=== PATIENT | male | born 1985 | race Caucasian/White ===

== ENCOUNTER 2017-11-06 10:29 | Inpatient (IN) | payer MEDICAID ==
--- NOTE | 2017-11-06 12:15 | EDPHY ---
H & P Stated Complaint: leg pain - Personal History Current Tetanus/Diphtheria Vaccine: Yes Tetanus Vaccine Date: <10 YRS - Medical/Surgical History Hx Asthma: Yes Hx Chronic Respiratory Disease: No Hx Diabetes: No Hx Cardiac Disease: No Hx Renal Disease: No Hx Cirrhosis: No Hx Alcoholism: No Hx HIV/AIDS: No Hx Splenectomy or Spleen Trauma: No Other PMH: medical- "asthma attacks like panic attacks". surgical- tonsilectomy , hernia repair, "anti-social behavior", - Social History Smoking Status: Heavy smoker Time Seen by Provider: 11/06/17 11:36 HPI/ROS: CHIEF COMPLAINT: "My legs are weak and I can't walk" HISTORY OF PRESENT ILLNESS: 32-year-old male with history of IV drug use, homelessness, took the bus to the ER stating for the past 2 days he has been experiencing progressive bilateral lower extremity weakness, left greater than right. Has not progressed proximally.. No trauma. No fall. No back pain. No fever or chills. No flu symptoms. No incontinence or retention. No discoloration. No urinary abnormality. No abdominal pain. No nausea or vomiting. No headache. No nuchal rigidity. No hallucination. PRIMARY CARE PROVIDER: None REVIEW OF SYSTEMS: A ten point review of systems was performed and is negative with the exception of the items mentioned in the HPI PAST MEDICAL & SURGICAL HISTORY: Asthma. Depression. Prior history chronic intermittent back pain but has been pain-free for several years. SOCIAL HISTORY: IV drug use history, sober for several months. Positive tobacco abuse. Newly homeless PHYSICAL EXAM (Prior to examination, patient consented to physical exam, hands were washed and my usual and customary physical exam procedures followed) 1) GENERAL: [Well-developed, well-nourished, alert and oriented. Poorly kept 2) HEAD: Normocephalic, atraumatic 3) HEENT: Pupils equal, round, reactive to light bilaterally. Sclera anicteric. Nasopharynx, oropharynx, clear, no lesions. 4) NECK: Full range of motion, no meningeal signs. 5) LUNGS: Clear auscultation bilaterally, no wheezes, no rhonchi, no retractions. 6) HEART: Regular rate and rhythm, no murmur, no heave, no gallop. 7) ABDOMEN: No guarding, no rebound, no focal tenderness, negative McBurney's, negative Au's, negative Rovsing's, negative peritoneal sign, 8) MUSCULOSKELETAL: Moving all extremities, no focal areas of tenderness, no obvious trauma. No peripheral edema or discoloration. 9) BACK: No CVA tenderness, no midline vertebral tenderness, no fluctuance, no step-off, no obvious trauma, no visual or palpable abnormality. 10) SKIN: No rash, no petechiae. 11) Psychiatric: Patient is oriented X 3, there is no agitation. 12) NEURO: Awake, alert, and oriented to person, place and time. Answers questions appropriately. He is unable to actively flex at the hip on the left thigh. He is unable to hold passive flexion at same location on the left side. Heel to alfaro dysfunction is noted, he has to lift his leg in order to move it against his alfaro. He is unable to Dorsiflexion and plantar flexion are present with no deficits. Antalgic, wide gait, hesitant to flex at the waist. Cranial nerves 2 through to 12 intact. DIFFERENTIAL DIAGNOSIS: In no particular order including but not limited to spinal infectious etiology, lumbar nerve compression, Guillain-T[place]ale[place], myositis (Cee,Leroy Katelyn) Constitutional: Initial Vital Signs Temperature (C) 36.3 C 11/06/17 10:30 Heart Rate 98 11/06/17 10:30 Respiratory Rate 18 11/06/17 10:30 Blood Pressure 134/103 H 11/06/17 10:30 O2 Sat (%) 93 11/06/17 10:30 O2 Delivery Mode Room Air Allergies/Adverse Reactions: SPIDER BITES Allergy (Intermediate, Uncoded 11/06/17 10:30) SITE EDEMA Home Medications: Medication Instructions Recorded Benztropine Mesylate [Cogentin 1.5 mg PO BID 11/06/17 (RX)] Haloperidol [Haldol 1 MG (*)] 1 mg PO DAILY 11/06/17 Haloperidol [Haldol 1 MG (*)] 3 mg PO HS 11/06/17 Lurasidone HCl [Latuda] 80 mg PO HS 11/06/17 hydrOXYzine HCL [hydrOXYzine HCL 50 mg PO BID 11/06/17 (RX)] Medical Decision Making - Diagnostics Imaging Results: Imaging Impressions Lumbar Spine MRI 11/06/17 12:19 Impression: Mild degenerative change as above with no acute findings. Findings discussed with Katelyn Mike on 11/06/2017 at 1357 hours. ED Course/Re-evaluation: This pt was seen and examined by me. He presents with BLE weakness, LBP and leukocytosis. Exam reveals LLE weakness, including hip flexion. MRI of the lumbar spine unremarkable. I agree with Katelyn Mike's assessment and plan. Plan for neurosurgery consultation and admission to the hospitalist service. (Sania Alegria) Noon.: Discussed the case with secondary supervising physician Dr. Sania Alegria in the ER. The patient has noted lower extremity weakness including hip flexion. He has a history of IV drug use. He has no complaints of back pain. Will obtain MRI of the lumbar spine, diagnostic studies and re-evaluate. 2:10 p.m.: I re-evaluated the patient. He remains with a noted L1/2 deficit. Will plan on admission. 2:17 p.m.: Consultation with Dr. Valiente Neurosurgery who will consult. 2:30 p.m.: Consultation with Dr. Jadyn Pool hospitalist will admit. Awaiting neurology call back 3:16 p.m.: Consultation with Dr. Lee Castillo of Neurology who agrees to consult. 3:23 p.m. patient is noted to have elevated CK. Hospitalist physician has been made aware of this (Leroy Mike) - Data Points Laboratory Results: Laboratory Results 11/06/17 12:15 11/06/17 12:15 11/06/17 11/06/17 11/06/17 14:22 12:15 12:15 WBC RBC Hgb Hct MCV MCH MCHC RDW Plt Count MPV Neut % (Auto) Lymph % (Auto) Lea % (Auto) Eos % (Auto) Baso % (Auto) Nucleat RBC Rel Count Absolute Neuts (auto) Absolute Lymphs (auto) Absolute Monos (auto) Absolute Eos (auto) Absolute Basos (auto) Absolute Nucleated RBC Immature Gran % Immature Gran # Platelet Estimate VBG Lactic Acid 1.0 mmol/L mmol/L (0.7-2.1) Sodium 137 mEq/L mEq/L (135-145) Potassium 3.9 mEq/L mEq/L (3.5-5.2) Chloride 98 mEq/L mEq/L (97-110) Carbon Dioxide 17 mEq/l L mEq/l (22-31) Anion Gap 22 mEq/L H mEq/L (8-16) BUN 18 mg/dL mg/dL (7-23) Creatinine 0.9 mg/dL mg/dL (0.7-1.3) Estimated GFR > 60 Glucose 96 mg/dL mg/dL (70-100) Calcium 9.7 mg/dL mg/dL (8.5-10.4) Creatine Kinase 7155 IU/L H IU/L (0-224) CK-MB (CK-2) Fraction 80.00 ng/mL H ng/mL (0.00-4.55) CK-MB (CK-2) % 1.1 % % (0.0-4.0) Creatine Kinase Interp NEGATIVE (NEGATIVE) 11/06/17 12:15 WBC 19.65 10^3/uL H 10^3/uL (3.80-9.50) RBC 5.61 10^6/uL 10^6/uL (4.40-6.38) Hgb 16.2 g/dL g/dL (13.7-17.5) Hct 47.4 % % (40.0-51.0) MCV 84.5 fL fL (81.5-99.8) MCH 28.9 pg pg (27.9-34.1) MCHC 34.2 g/dL g/dL (32.4-36.7) RDW 12.7 % % (11.5-15.2) Plt Count 269 10^3/uL 10^3/uL (150-400) MPV 10.2 fL fL (8.7-11.7) Neut % (Auto) Pending Lymph % (Auto) Pending Lea % (Auto) Pending Eos % (Auto) Pending Baso % (Auto) Pending Nucleat RBC Rel Count Pending Absolute Neuts (auto) Pending Absolute Lymphs (auto) Pending Absolute Monos (auto) Pending Absolute Eos (auto) Pending Absolute Basos (auto) Pending Absolute Nucleated RBC Pending Immature Gran % Pending Immature Gran # Pending Platelet Estimate Pending VBG Lactic Acid Sodium Potassium Chloride Carbon Dioxide Anion Gap BUN Creatinine Estimated GFR Glucose Calcium Creatine Kinase CK-MB (CK-2) Fraction CK-MB (CK-2) % Creatine Kinase Interp Medications Given: Nicotine Polacrilex (Nicorette) 2 mg B PRN PRN PRN Reason: Nicotine Withdrawal Stop: 05/05/18 13:35 Last Admin: 11/06/17 13:47 Dose: 2 mg Departure - Departure Disposition: [facility] Inpatient Acute Clinical Impression: History of IV drug use, Homeless, Elevated CK Lower extremity weakness Qualifiers: Laterality: bilateral Qualified Code(s): R29.898 - Other symptoms and signs involving the musculoskeletal system Condition: Fair
[2017-11-06 12:28] LABS: PLATELET COUNT 269 10^3/uL (150-400)
[2017-11-06] MEDS: NICOTINE POLACRILEX 2 MG GUM B PRN ×3 (13:47→21:10)
--- NOTE | 2017-11-06 15:14 | ASMTCMCOM ---
CM Note CM Note Notes: Met with patient in the ER prior to admission. patient is newly homeless and states that he has relocated from [place] to [place]. he tells me that he has been seeing Dr. Chung at [facility] for years. I have left a message with Dr. Chung to inform of patient's admission. I provided patient with homeless resources including the [facility] program. Patient appreciative and will continue to follow up with Dr. Chung upon discharge Date Signed: 11/06/2017 03:13 PM Electronically Signed By:Courtney Rhodes RN
[2017-11-06 15:18] LABS: CREATINE KINASE 7155 IU/L (0-224)
[2017-11-06] MEDS ORDERED: HYDROmorphone HCL/NS 0.5 MG/ML SYR IVP PRN (16:35)
[2017-11-06] MEDS ORDERED: PROMETHAZINE HCL 25 MG/ML INJ IVP PRN (16:38)
[2017-11-06] MEDS ORDERED: ONDANSETRON 4 MG/2 ML VIAL IVP PRN (16:38)
[2017-11-06] MEDS: ACETAMINOPHEN 325 MG TAB PO PRN (17:09)
[2017-11-06] MEDS: traMADol 50 MG TAB PO PRN (17:09)
[2017-11-06] MEDS: NS 1,000 ML IV SCH (17:11)
--- NOTE | 2017-11-06 17:14 | GHP ---
[f rep st] HISTORY AND PHYSICAL DATE OF ADMISSION: 11/06/2017 CHIEF COMPLAINT: Lower extremity weakness. HISTORY: The patient is a 32-year-old male who complains of 1 day of lower extremity weakness. He h as difficulty walking. He has some low or mid back pain. He denies any fever. He denies any urinar y incontinence or retention. Both his legs are weak, left greater than right, and they are stiff cau sing an unusual gait. He is homeless and denies any recent trauma. He describes the last couple of days mostly just sitting under various bridges trying to get out of rain and stay warm and dry. He h as a history of IV drug abuse but says he has not used for 3 years. PAST MEDICAL HISTORY: 1. IV drug abuse in the past. 2. Asthma versus panic disorder. 3. Antisocial personality disorder. PAST SURGICAL HISTORY: Hernia with mesh. MEDICATIONS: Please see computer record for a full detailed list. ALLERGIES: Spider bite. SOCIAL HISTORY: Smokes a half a pack per day. Also smokes marijuana. Quit IV drug abuse 3 years ag o. Minimal alcohol. He is homeless but grew up in [place] and went to [facility]. REVIEW OF SYSTEMS: Complete review of systems obtained. Review of systems negative for constitution al, HEENT, GI, pulmonary, cardiovascular, , hematology, skin, muscular, endocrine, psych. Pertinen t positives as noted in HPI. FAMILY HISTORY: Reviewed, noncontributory to presenting complaint. PHYSICAL EXAMINATION: GENERAL: Well-developed, well-nourished male, in no distress. VITAL SIGNS: Temp is 36.3, pulse 104, blood pressure 132/84, saturating 91% on room air. HEENT: Normal conjuncti vae. Pupils react to light. Normal ears, nose. Hearing intact. Normal teeth. Oropharynx moist. NECK: Trachea midline. No thyromegaly. CHEST: Normal inspiratory effort. Lungs clear to auscultat ion bilaterally. CARDIOVASCULAR: Regular rate and rhythm with no murmur. No lower extremity edema. ABDOMEN: Soft, nontender. No hepatosplenomegaly. SKIN: Warm, dry, intact without rash. MUSCULO SKELETAL: No cyanosis or clubbing. Strength is reduced in bilateral lower extremities. I did watch him ambulate. He was stiff, wide base gait. Getting his legs out of bed, he used his arms to lift the legs over the side of the bed. NEUROLOGIC: Cranial nerves intact. Normal sensation to light pey[place] ch. PSYCHIATRIC: Alert and oriented x3. Normal mood and affect. Normal judgment. Normal memory. LABORATORY DATA: White count 19.6, hematocrit 47.4, platelets 269. Sodium 137, potassium 3.9, chlor sridhar 98, bicarb 17, BUN 18, creatinine 0.9, glucose 96. Lactate is 1.0. CPK is 7155. MRIs of the thoracic and lumbar spine are unremarkable. This case was discussed with , emergency room PA. He has consulted both Neurosurgery and N eurology to see the patient in consultation. ASSESSMENT/PLAN: 1. Lower extremity weakness associated with low back pain. Initial concern for epidural abscess, gi yokasta his history of intravenous drug abuse and leukocytosis, but MRIs of the thoracic and lumbar spine are unremarkable. Await Neurology input. 2. Rhabdomyolysis. Will hydrate overnight with intravenous fluids and follow CPK. 3. History of intravenous drug abuse. Will check human immunodeficiency virus and hepatitis C. 4. Antisocial personality disorder. He has an extensive psychiatric medication list which will be c ontinued. CODE STATUS: Full. ADMISSION STATUS: Will admit to observation. Reevaluate tomorrow regarding ongoing need for hospita lization. DVT PROPHYLAXIS: He is moderate risk. Will place on subcu Lovenox. /[id number]/MODL
--- NOTE | 2017-11-06 17:29 | GCON ---
[f rep st] CONSULTATION EMERGENCY ROOM CONSULTATION DATE OF CONSULTATION: 11/06/2017 REASON FOR CONSULTATION: Proximal leg weakness. HISTORY OF PRESENT ILLNESS: The patient is a 32-year-old IV drug user, who suffers from homelessness , as well as apparently history of antisocial behavior and, over the last 2 days, has been suffering from progressive proximal bilateral lower extremity weakness and, today, he was unable to walk. The left side is worse than the right. He complains of diffuse swanson leg pain throughout both legs in no p articular dermatomal pattern, but his legs are hurting and painful. He has had no trauma. He denies back pain. He denies fevers or chills. Distal legs, he says, are doing fine. He denies any proble ms with his arms whatsoever. No weakness in the arms. No numbness or tingling. PAST MEDICAL HISTORY: Significant for asthma, intermittent back pain, but he has been pain free for several years. He has had a tonsillectomy, a hernia repair, and he says that he has some antisocial behavior. SOCIAL HISTORY: He is an IV drug user and has been sober for several months, but he does smoke [employer] He is homeless, but this is a new development for him. PHYSICAL EXAM: VITAL SIGNS: Blood pressure 132/84, his MAP was 100, heart rate was 104, respiratory rate 18, saturations were 91% on room air. NEURO: His eyes are open. He follows commands bilatera lly. He is in no acute distress, but he does have profound proximal leg weakness. He has good stren gth in the plantar flexors, extensor hallucis longus and tibialis anterior. His left quadriceps is 2 /5. His left iliopsoas is 1/5. The right quadriceps is 3/5. The right iliopsoas is also 3/5. His sensation is present in the legs, and he was evaluated for a thoracic sensory level repeatedly, and h e has an area of hypersensitivity in the mid thoracic spine, but there is no clear evidence of a thor acic sensory level on exam. DATA REVIEWED: MRI of the lumbar spine demonstrates no evidence of any critical nerve compression at any level in the lumbar spine. ASSESSMENT AND PLAN: The patient is a 32-year-old homeless gentleman, who has a history of IV drug a buse and is a heavy smoker, who has significant proximal leg weakness without evidence of neural comp ression on lumbar MRI. He did have an area of hypersensitivity in his thoracic spine but no evidence of a clear thoracic sensory level. He has no upper motor neuron signs in his arms. I did not see n ecessarily a reason to image the cervical spine, as he has normal strength in the upper extremities, but I thought a thoracic MRI might be useful in this case. The more common causes of proximal muscle weakness in the legs with pain in the legs would be an inflammatory condition of the muscles themsel ves, possibly metabolic or related to poor nutrition. Alcohol can be a cause of proximal muscle weak ness and myositis, but he apparently has refrained from this recently. I think an opinion with Neuro logy as well would be valid, and we will wait to see what the thoracic MRI demonstrates. There is no neurosurgical problem in this patient, but further workup is needed to understand the nature of his difficulty. /[id number]/MODL
[2017-11-06] MEDS ORDERED: MAGNESIUM HYDROXIDE 30 ML UDCUP PO PRN (17:45)
[2017-11-06] MEDS ORDERED: LACTULOSE 20 GM/30 ML UDCUP PO PRN (17:45)
[2017-11-06] MEDS ORDERED: BISACODYL 10 MG SUPP PR PRN (17:45)
[2017-11-06] MEDS ORDERED: POLYETHYLENE GLYCOL 3350 17 GM PKT PO PRN (17:45)
[2017-11-06] MEDS: BENZTROPINE MESYLATE 1 MG TAB PO SCH (19:53)
[2017-11-06] MEDS: hydrOXYzine HCL 25 MG TAB PO SCH (19:54)
[2017-11-06] MEDS: HALOPERIDOL 1 MG TAB PO SCH (19:55)
[2017-11-06] MEDS: LURASIDONE HCL 80 MG TAB PO SCH (19:55)
[2017-11-06] MEDS: oxyCODONE IR 5 MG TAB PO PRN (19:56)
[2017-11-06] MEDS: SENNOSIDES/DOCUSATE SODIUM TAB PO SCH (19:56)
[2017-11-07] MEDS: NS 1,000 ML IV SCH ×3 (01:08→14:42)
[2017-11-07] MEDS: traMADol 50 MG TAB PO PRN ×3 (04:38→15:46)
[2017-11-07 05:28] LABS: PLATELET COUNT 263 10^3/uL (150-400)
[2017-11-07 05:55] LABS: CREATINE KINASE 2846 IU/L (0-224)
[2017-11-07 06:45] LABS: HEPATITIS C ANTIBODY TOTAL NEGATIVE (NEGATIVE); HIV TYPE 1 AND 2 NEGATIVE (NEGATIVE)
[2017-11-07] MEDS: HALOPERIDOL 1 MG TAB PO SCH ×2 (08:41→20:19)
[2017-11-07] MEDS: BENZTROPINE MESYLATE 1 MG TAB PO SCH ×2 (08:41→20:19)
[2017-11-07] MEDS: SENNOSIDES/DOCUSATE SODIUM TAB PO SCH ×2 (08:42→20:20)
[2017-11-07] MEDS: hydrOXYzine HCL 25 MG TAB PO SCH ×2 (08:42→20:20)
[2017-11-07] MEDS: ENOXAPARIN 40 MG/0.4 ML SYR SC SCH (08:42)
[2017-11-07] MEDS: NICOTINE POLACRILEX 2 MG GUM B PRN ×2 (08:54→15:48)
[2017-11-07] MEDS: ACETAMINOPHEN 325 MG TAB PO PRN ×2 (08:54→15:45)
--- NOTE | 2017-11-07 09:51 | NEUROPROG ---
Assessment: [id number] - Neurology Consult: - CC: Dr. Jadyn Pool consulted neurology for lower extremity weakness. Results placed in EMR for her review. - HPI: Pt is homeless. He noted on 11/04/17 his left greater than right leg felt weak. He denied urinary incontinence but has some lower and mid back pain. He denied fever or recent IV drug abuse (last abused in 2014). Weakness was proximal legs and progressed to the point of preventing ambulation so he came to the [facility] ER on 11/06/17. He also complained of leg pain. Neurosurgery saw the patient and found no indications for surgery. CK was very high at 7,155 so it appears he has rhabdomyolysis to explain his symptoms. I initially saw the patient on . His CK was decreasing to the 1999s. He reported his legs felt less weak and painful today but were still a problem. His neurologic exam on 11/07/17 showed bilateral proximal leg weakness. - PMHx: IV drug abuse, asthma vs panic disorder, antisocial personality disorder, hernia - SHx: +tobacco, homeless FHx: NC - ROS: Pt denied acute fever, total vision loss, active severe chest pain, respiratory failure, total body severe rash, total bowel/bladder incontinence, psychosis, active seizures, or active bleeding - O: VS reviewed General: Alert Eyes: Fundoscopic exam not able to visualize optic disks CV: Heart RRR, no murmur, no carotid bruit Lungs: Clear to auscultation bilaterally, no rhonchi or rales Neuro: - Mental: . Oriented x person/place/date . concentration appears normal . speech fluency/comprehension normal . memory appears normal . fund of knowledge appear intact - Cranial Nerves: . II: PERRL, VFFTC . III/IV/: EOMI, no nystagmus, normal smooth pursuits, no Ptosis . V: facial sensation intact to LT . VII: face symmetric to eye closure and smile . VIII: hearing intact to conversation . IX/X: uvula raises symmetrically . XI: SCM 5/5 B/L strength . XII: tongue protrudes midline w/nl strength - Motor: . Tone: normal tone in all 4 extremity . Strength: no pronator drift, strength 5/5 in arms and distal legs but 4+ / 5 in b/l proximal legs - Reflexes: B/L bic/BR/patella 08/10 - Sensory: all 4 extremity intact to light touch - Coord: [id number] wnl, ROBBIN wnl - Gait: deferred - Labs: 11/06/17- CBC WBC 19.65H, Chem CO2 17L Anion gap 22H, CK 7155H 11/07/17- CBC WBC 13.99H, ESR 11, CMP AST 252H, ALT 86H, CK 2846, CRP 64.4H, TSH wnl, B12 604, Hep C ab neg, HIV 1 and 2 negative, - Rads: 11/06/17- T/L Spine MRI w/o con: mild lumbar degenerative changes w/o acute findings, normal thoracic spine (I personally visualized the images on 11/06/17) - Assessment: 1. Rhabdomyolysis causing bilateral proximal leg weakness/pain: Unclear cause but inflammatory myopathy, metabolic myopathy (alcohol or drug abuse can cause) , or infective myopathy are all possible. Agree with pending lab evaluation. Condition is improving with decreasing CK values and improving clinical symptoms. - Plan: - blood culture and Aldolase pending to look for any inflammatory or infectious myopathy - PT/OT consult to determine any rehab needs - Symptoms are improving - F/U in neurology clinic 1-4 weeks after discharge, we can consider an EMG/NCS at that time to further investigate the cause of his myopathy Objective: Vital Signs Temp Pulse Resp BP Pulse Ox 37.1 C 97 18 112/65 91 L 11/07/17 08:00 11/07/17 08:00 11/07/17 08:00 11/07/17 08:00 11/07/17 08:00 Laboratory Results 11/07/17 04:42 11/07/17 04:42 11/06/17 11/07/17 11/08/17 05:59 05:59 05:59 Intake Total 150 2273 Balance 150 2273 Allergies/Adverse Reactions: SPIDER BITES Allergy (Intermediate, Uncoded 11/06/17 10:30) SITE EDEMA
--- NOTE | 2017-11-07 10:01 | NEUSURGPN ---
Assessment/Plan: 32 y/o male who presented with pain in hsi legs and weaknss-this had now improved. Appreciate neurology consultation. There is no acute neurosurgical issues and patient is improving. Will s/o at this time Discussed with Dr. Davis Please notify NS with any change in neuro/motor exam Subjective: denies any neck or back pain. Leg strength improved, pain improved. Objective: NAD A&Ox3 MAEx4, 5/5 and equal in BUE and BLE. Sensation intact - Physician Discussed Patient with : Ryan Neurosurgery Physical Exam - Vitals, I&O, Labs I and O 11/06/17 11/07/17 11/08/17 05:59 05:59 05:59 Intake Total 150 2273 Balance 150 2273 Weight 104.326 kg Intake: Oral (ml) 150 500 IV Infused (ml) 1773 Ns 1,000 ml @ 150 mls/hr 1773 IV CONT MAREN Rx#: [id number] Other: Intake Quantity Yes Sufficient Number of Voids 1 Toilet 1 Vital Signs Temp Pulse Resp BP Pulse Ox 37.1 C 97 18 112/65 91 L 11/07/17 08:00 11/07/17 08:00 11/07/17 08:00 11/07/17 08:00 11/07/17 08:00 Laboratory Results 11/07/17 04:42 11/07/17 04:42 ICD10 Worksheet Patient Problems: Problems Problem Status Onset Elevated CK Acute Homeless Acute Lower extremity weakness Acute
--- NOTE | 2017-11-07 11:07 | ASMTCMCOM ---
CM Note CM Note Notes: Chart reviewed. Met with patient who is very sleepy but interacts appropriately. Being hydrated. Has information on group home and is current with Dr. Chung at [facility] [phone]. May need group home bed reserved upon discharge. CM to follow. Plan:Dc to street vs group home Date Signed: 11/07/2017 11:06 AM Electronically Signed By:Eloise Steiner RN
--- NOTE | 2017-11-07 14:37 | HOSPPROG ---
Hospitalist Progress Note Assessment/Plan: #Bilateral proximal leg weakness #Bilateral Leg Pain #Rhabdo #Homelessness #Tobacco Abuse disorder Plan: -Cont IVF -Cont PT -Per Neuro, etiology of leg weakness could be Rhabdo causing inflammatory myopathy -NS signed off -Nicotine replacement -Lovenox Change to inpatient Subjective: still weak but improving. working with PT. no surgical intervention needed Objective: Vital Signs Temp Pulse Resp BP Pulse Ox 36.9 C 90 15 112/71 95 11/07/17 11:18 11/07/17 11:18 11/07/17 11:18 11/07/17 11:18 11/07/17 11:18 Laboratory Results 11/07/17 04:42 11/07/17 04:42 11/06/17 11/07/17 11/08/17 05:59 05:59 05:59 Intake Total 150 2273 Balance 150 2273 - Physical Exam Constitutional: no apparent distress, appears nourished Eyes: PERRL, EOMI Ears, Nose, Mouth, Throat: moist mucous membranes, hearing normal, ears appear normal Cardiovascular: regular rate and rhythym, no murmur, rub, or gallop Respiratory: no respiratory distress, no rales or rhonchi Gastrointestinal: normoactive bowel sounds, soft, non-tender abdomen Skin: warm Musculoskeletal: generalized weakness Neurologic: AAOx3 Psychiatric: interacting appropriately, not anxious, not encephalopathic ICD10 Worksheet Patient Problems: Problems Problem Status Onset Elevated CK Acute Homeless Acute Lower extremity weakness Acute
--- NOTE | 2017-11-07 14:58 | PDMN ---
Medical Necessity Medical necessity: change to IP; los>2mn for bilateral LE weakness and pain, rhabdo possibly causing inflammatory myopathy; requires continued IVF, PT; comorbid asthma vs panic disorder, personality disorder, and hx IV drug use, homelessness; per order and progress note 11/07/17
[2017-11-07] MEDS: oxyCODONE IR 5 MG TAB PO PRN (20:18)
[2017-11-07] MEDS: LURASIDONE HCL 80 MG TAB PO SCH (20:20)
[2017-11-08] MEDS: NS 1,000 ML IV SCH ×2 (01:01→10:27)
[2017-11-08 04:45] LABS: PLATELET COUNT 220 10^3/uL (150-400)
[2017-11-08 05:23] LABS: CREATINE KINASE 916 IU/L (0-224)
[2017-11-08 08:04] VITALS: BP 137/91
[2017-11-08] MEDS: BENZTROPINE MESYLATE 1 MG TAB PO SCH (08:31)
[2017-11-08] MEDS: hydrOXYzine HCL 25 MG TAB PO SCH (08:31)
[2017-11-08] MEDS: NICOTINE POLACRILEX 2 MG GUM B PRN (08:32)
[2017-11-08] MEDS: ENOXAPARIN 40 MG/0.4 ML SYR SC SCH (08:32)
[2017-11-08] MEDS: HALOPERIDOL 1 MG TAB PO SCH (08:32)
[2017-11-08] MEDS: SENNOSIDES/DOCUSATE SODIUM TAB PO SCH (08:35)
--- NOTE | 2017-11-08 10:34 | HOSPPROG ---
Hospitalist Progress Note Assessment/Plan: #Bilateral proximal leg weakness/pain * presumed d/t rhabodo * improving * was needing walker today when walking down [address] - will keep another day or 2 for strengthening #Rhabdo * cause not completely clear * was cold and [place] [facility] [place] before the symptoms started * cpk close to normal * will dc fluid #Homelessness #Tobacco Abuse Subjective: getting stronger everyday but still fairly unsteady Objective: Vital Signs Temp Pulse Resp BP Pulse Ox 36.7 C 76 18 137/91 H 93 11/08/17 08:03 11/08/17 08:03 11/08/17 08:03 11/08/17 08:03 11/08/17 08:03 Laboratory Results 11/08/17 04:25 11/08/17 04:25 11/07/17 11/08/17 11/09/17 05:59 05:59 05:59 Intake Total 150 4373 Output Total 1 Balance 150 4372 - Physical Exam Constitutional: no apparent distress, appears nourished, not in pain Eyes: PERRL, anicteric sclera Cardiovascular: regular rate and rhythym Respiratory: no respiratory distress Skin: warm Neurologic: AAOx3 Psychiatric: interacting appropriately, not anxious, not encephalopathic, thought process linear ICD10 Worksheet Patient Problems: Problems Problem Status Onset Elevated CK Acute Homeless Acute Lower extremity weakness Acute
--- NOTE | 2017-11-08 13:25 | NEUROPROG ---
Assessment: [id number] - Neurology Consult: - CC: F/U for rhabdomyolysis causing b/l proximal leg weakness - Narrative Summary: Pt is homeless. He noted on 11/04/17 his left greater than right leg felt weak. He denied urinary incontinence but has some lower and mid back pain. He denied fever or recent IV drug abuse (last abused in 2014). Weakness was proximal legs and progressed to the point of preventing ambulation so he came to the [facility] ER on 11/06/17. He also complained of leg pain. Neurosurgery saw the patient and found no indications for surgery. CK was very high at 7,155 so it appears he has rhabdomyolysis to explain his symptoms. I initially saw the patient on . His CK was decreasing to the 1999s. He reported his legs felt less weak and painful today but were still a problem. His neurologic exam on 11/07/17 showed bilateral proximal leg weakness. He was improving. - HPI: F/U 11/08/17. Pt denied new complaints. His CK continues to downtrend to 916 and he is clinically improving. Blood cultures show no growth, aldolase still pending. - PMHx: IV drug abuse, asthma vs panic disorder, antisocial personality disorder, hernia - SHx: +tobacco, homeless FHx: NC - ROS: Pt denied acute fever, total vision loss, active severe chest pain, respiratory failure, total body severe rash, total bowel/bladder incontinence, psychosis, active seizures, or active bleeding - Labs: 11/06/17- CBC WBC 19.65H, Chem CO2 17L Anion gap 22H, CK 7155H 11/07/17- CBC WBC 13.99H, ESR 11, CMP AST 252H, ALT 86H, CK 2846, CRP 64.4H, TSH wnl, B12 604, Hep C ab neg, HIV 1 and 2 negative, 11/08/17- CBC unremarkable, CK 916H - Rads: 11/06/17- T/L Spine MRI w/o con: mild lumbar degenerative changes w/o acute findings, normal thoracic spine (I personally visualized the images on 11/06/17) - Assessment: 1. Rhabdomyolysis causing bilateral proximal leg weakness/pain: Unclear cause but inflammatory myopathy or metabolic myopathy (alcohol or drug abuse can cause ) are possible. Condition is improving with decreasing CK values and improving clinical symptoms. - Plan: - Aldolase pending to look for any inflammatory myopathy - PT/OT consult to determine any rehab needs - Symptoms are improving with IV fluid, no additional therapy needed at this time - F/U in neurology clinic 1-4 weeks after discharge, we can consider an EMG/NCS at that time to further investigate the cause of his myopathy - 35 min spent with patient, majority of time spent counseling on condition to include prognosis and therapeutic plan. Objective: Vital Signs Temp Pulse Resp BP Pulse Ox 36.7 C 76 18 137/91 H 93 11/08/17 08:03 11/08/17 08:03 11/08/17 08:03 11/08/17 08:03 11/08/17 08:03 Laboratory Results 11/08/17 04:25 11/08/17 04:25 11/07/17 11/08/17 11/09/17 05:59 05:59 05:59 Intake Total 150 4373 Output Total 1 Balance 150 4372 Allergies/Adverse Reactions: SPIDER BITES Allergy (Intermediate, Uncoded 11/06/17 10:30) SITE EDEMA
--- NOTE | 2017-11-08 15:14 | ASMTCMCOM ---
CM Note CM Note Notes: Spoke with [employer] & general office dispatcher; informed pt called [employer] front attendant stating he was "ready to check out". [employer] alerted RN. RN alerted MD, who had not rounded on pt yet. 10 minutes later, pt's room was empty. Pt removed his IV, took all his personal belongings & left. No other needs at this time. Date Signed: 11/08/2017 03:13 PM Electronically Signed By:Luciana Bolden RN
--- NOTE | 2017-11-08 15:15 | ASDISCHSUM ---
Discharge Information Plan Status:Homeless/Fpc Medically Cleared to Leave: Discharge Date:11/08/2017 12:47 PM CM D/C Disposition: ADT D/C Disposition:Against Medical Advice Projected Discharge Date:11/08/2017 12:47 PM Transportation at D/C:Self Discharge Delay Reason: Follow-Up Date:11/08/2017 12:47 PM Discharge Slot: Final Diagnosis: Placement Information Patient Contact Information Contact Name:SANJANA Relationship:Mother Address: Work Phone: City:[place] [facility] Phone: State/[place] Code:[place] [address] Email: Financial Information Financial Class:Medicaid Primary Plan Desc:[place] Primary Plan Number:[id number] Secondary Plan Desc: Secondary Plan Number: Assessment Information [facility] CM Progress Note CM Note CM Note Notes: Met with patient in the ER prior to admission. patient is newly homeless and states that he has relocated from [place] to [place]. he tells me that he has been seeing Dr. Chung at [facility] for years. I have left a message with Dr. Chung to inform of patient's admission. I provided patient with homeless resources including the [facility] program. Patient appreciative and will continue to follow up with Dr. Chung upon discharge Date Signed: 11/06/2017 03:13 PM Electronically Signed By:Courtney Rhodes RN LACE CARSON Length of stay for Answers: 3 days current admission # of Emergency department Answers: 1-2 visits in the last 6 months Social determinants Answers: History of substance abuse (ETOH, street drugs, prescription drugs, etc.) Homelessness (street, prison) Mental health diagnosis (anxiety, depression, pers onality disorders, etc.) Score: 13 Date Signed: 11/08/2017 03:14 PM Electronically Signed By:Luciana Bolden RN [facility] CM Progress Note CM Note CM Note Notes: Chart reviewed. Met with patient who is very sleepy but interacts appropriately. Being hydrated. Has information on prison and is current with Dr. Chung at [facility] [phone]. May need prison bed reserved upon discharge. CM to follow. Plan:Dc to street vs prison Date Signed: 11/07/2017 11:06 AM Electronically Signed By:Eloise Steiner RN [facility] CM Progress Note CM Note CM Note Notes: Spoke with PROTECTIVE SIGNAL INSTALLER & [employer]; informed pt called [employer] help desk consultant stating he was "ready to check out". PROTECTIVE SIGNAL INSTALLER alerted RN. RN alerted MD, who had not rounded on pt yet. 10 minutes later, pt's room was empty. Pt removed his IV, took all his personal belongings & left. No other needs at this time. Date Signed: 11/08/2017 03:13 PM Electronically Signed By:Luciana Bolden RN Intervention Information
--- NOTE | 2017-11-09 14:04 | GDS ---
[f rep st] DISCHARGE SUMMARY DISCHARGE DIAGNOSES: 1. Rhabdomyolysis. 2. Bilateral weakness secondary to above. 3. Homelessness. 4. Social anxiety disorder. HISTORY: This is a 32-year-old male, who is homeless. He presented with bilateral leg weakness. day prior to admission, he was in the rain and cold trying to find skilled nursing. HOSPITAL COURSE: The patient was diagnosed with rhabdo. His CPK was 7100. Aldolase was also high a t 38.5. He was given IV fluids, and his weakness improved day by day. Before we could get his aldol ase back, which is elevated, patient walked out of the hospital without letting anyone know. The [facility] n was for him to follow up with Neurology. /[id number]/MODL
== END 2017-11-08 12:47 | disposition left against medical advice (07) | DRG 351 ==
LOC: OBSVTOIN 14:34 → F3N 15:41
PROVIDERS: ADMIT Internal Medicine; ATTEND Internal Medicine
DX: M62.82 Rhabdomyolysis (principal); F41.9 Anxiety disorder, unspecified; F17.210 Nicotine dependence, cigarettes, uncomplicated; Z59.0 Homelessness; J45.909 Unspecified asthma, uncomplicated
CPT/HCPCS: 82085-90; 82607-90; 86141-90; 97116-GP; 97161-GP; 97165-GO; 97535-GO; G0378; G0472; J1650

== ENCOUNTER 2018-01-01 18:34 | Emergency (ER) | payer MEDICAID ==
[2018-01-01 18:47] VITALS: BP 129/84
--- NOTE | 2018-01-01 19:24 | EDPHY ---
H & P Stated Complaint: just got out of [facility]/painful cysts face and neck Time Seen by Provider: 01/01/18 19:24 HPI/ROS: CHIEF COMPLAINT: Chronic folliculitis HISTORY OF PRESENT ILLNESS: The patient presents to the ED with complaints of painful folliculitis. The patient was just released from [facility]. He has chronic facial folliculitis. The patient is also complaining of ankle pain and is requesting ibuprofen. The patient is also requesting to use. The patient denies additional acute complaints. REVIEW OF SYSTEMS: A comprehensive 10 point review of systems is otherwise negative aside from elements mentioned in the history of present illness. Source: Patient Exam Limitations: No limitations - Personal History Current Tetanus Diphtheria and Acellular Pertussis (TDAP): No Tetanus Vaccine Date: <10 YRS - Medical/Surgical History Hx Asthma: Yes Hx Chronic Respiratory Disease: No Hx Diabetes: No Hx Cardiac Disease: No Hx Renal Disease: No Hx Cirrhosis: No Hx Alcoholism: No Hx HIV/AIDS: No Hx Splenectomy or Spleen Trauma: No Other PMH: medical- "asthma attacks like panic attacks". surgical- tonsilectomy , hernia repair, "anti-social behavior", depression - Social History Smoking Status: Heavy smoker - Physical Exam Exam: General Appearance: Alert, no distress Eyes: Pupils equal and round no pallor or injection ENT, Mouth: Mucous membranes moist Respiratory: There are no retractions, lungs are clear to auscultation Cardiovascular: Regular rate and rhythm Gastrointestinal: Abdomen is soft and nontender, no masses, bowel sounds normal Neurological: A&O, normal motor function, normal sensory exam, normal cranial nerves Skin: Multiple chronic pustular lesions noted on the face and neck, no obvious abscess or fluctuance requiring drainage Musculoskeletal: Neck is supple nontender Extremities: symmetrical, full range of motion Constitutional: Initial Vital Signs Temperature (C) 36.5 C 01/01/18 18:45 Heart Rate 121 H 01/01/18 18:45 Respiratory Rate 18 01/01/18 18:45 Blood Pressure 129/84 H 01/01/18 18:45 O2 Sat (%) 93 01/01/18 18:45 O2 Delivery Mode Room Air Allergies/Adverse Reactions: SPIDER BITES Allergy (Intermediate, Uncoded 01/01/18 18:44) SITE EDEMA Home Medications: Medication Instructions Recorded NK [No Known Home Meds] 06/28/18 Medical Decision Making ED Course/Re-evaluation: The patient presents to the ED with no emergent medical condition. He has chronic folliculitis on his face. He certainly is at risk for MRSA. There is no drainable abscess. The patient will be started on Bactrim. The patient is it was take Tylenol as needed for pain. The patient should [facility] to [facility]. Departure - Departure Disposition: Home, Routine, Self-Care Clinical Impression: Folliculitis Condition: Good Instructions: Folliculitis (ED) Additional Instructions: 1. Take Ibuprofen or Motrin 600 mg by mouth three times a day. 2. Please schedule a follow-up appointment with [facility] to establish primary care. 3. Please take antibiotics as prescribed. 4. Return to the ED for markedly worsening symptoms or other concerns. Referrals: [facility],. [Clinic] - As per Instructions
[2018-01-01] MEDS ORDERED: IBUPROFEN 600 MG TAB PO ONE (19:33)
== END 2018-01-01 19:34 | disposition home or self-care (01) ==
DX: L73.9 Follicular disorder, unspecified (principal); J45.909 Unspecified asthma, uncomplicated; F17.200 Nicotine dependence, unspecified, uncomplicated

== ENCOUNTER 2018-02-23 | Emergency (ER) | payer OTHER | END 2018-02-23 18:02 | disposition home or self-care (01) ==

== ENCOUNTER 2018-07-23 16:13 | Emergency (ER) | payer MEDICAID ==
[2018-07-23 16:43] VITALS: BP 128/80
--- NOTE | 2018-07-23 16:52 | EDPHY ---
H & P Time Seen by Provider: 07/23/18 16:41 HPI/ROS: CHIEF COMPLAINT: " I need medications, I broke my right leg" HISTORY OF PRESENT ILLNESS: 32-year-old man presents with his primary concern being that he has been off of his psychiatric medications for more than 2 weeks. He was on multiple medications including BuSpar and lithium but he ran out several weeks ago. He has not seen the mental health clinic in about a month and a half, he is a patient of Dr. Chung. Patient said the main consequences as anxiety is worse, and he said he is having "trouble dealing with other people." His 2nd complaint is he is worried about a blister on the right foot on the heel area, his 3rd complaint is he was worried that he fractured or broke his leg about a week ago after minor injury on the lateral part of his lower leg above the ankle. REVIEW OF SYSTEMS: Eye: no change in vision ENT: no sore throat Cardiac: no chest pain or syncope Pulmonary: no cough or SOB Abdomen: no vomiting, diarrhea, abdominal pain Musculoskeletal: HPI Skin: no rash Neuro: no headache Constitutional: no fever : no urinary symptoms A comprehensive 10 point review of systems is otherwise negative aside from elements mentioned in the history of present illness. PAST MEDICAL HISTORY: Includes bipolar disorder, hernia repair, previous hospitalization for rhabdomyolysis Social history: Currently homeless General Appearance: Alert and conversant, cooperative. Eyes: No scleral icterus. ENT, Mouth: Normal mucous membranes. Respiratory: Normal respiratory effort, breath sounds equal, lungs are clear to auscultation. Cardiovascular: Regular rate and rhythm. Gastrointestinal: Abdomen is soft and non tender. Neurological: Alert, face symmetric, normal motor and sensory in extremities. Skin: Patient has a 2 cm blister on the right heel which is not draining, not surrounded by redness, not hot to the touch. No lymphangitis. No skin abnormalities over the right lateral lower leg. Musculoskeletal: He has mild tenderness on the right lateral fibula but no crepitus, ankle joint is stable, compartments are soft. No calf tenderness. Psychiatric: Patient appears mildly anxious. He denies suicidal or homicidal ideation or hallucinations. Emergency Department course/MDM: X-ray of the right tib-fib is negative. I think it is unlikely he has compartment syndrome or DVT or infection or cellulitis. He has a heel blister but does not appear to have an infection there. He does not appear to meet mental health hold criteria. Seen by case management for mental health follow-up. Smoking Status: Heavy smoker Constitutional: Initial Vital Signs Temperature (C) 36.8 C 07/23/18 16:17 Heart Rate 102 H 07/23/18 16:17 Respiratory Rate 18 07/23/18 16:17 Blood Pressure 125/82 H 07/23/18 16:17 O2 Sat (%) 98 07/23/18 16:17 O2 Delivery Mode Room Air Allergies/Adverse Reactions: No Known Allergies Allergy (Unverified 07/23/18 16:19) Home Medications: Medication Instructions Recorded Buspar (*) 07/23/18 [place] 07/23/18 MDM/Departure - MDM Imaging Results: Imaging Impressions Tibia/Fibula X-Ray 07/23/18 16:49 Impression: There is no acute osseous abnormality. Negative right tib-fib x-ray. Imaging: I viewed and interpreted images myself - Depart Disposition: Home, Routine, Self-Care Clinical Impression: Bipolar disorder Qualifiers: Active/Remission status: remission status unspecified Qualified Code(s): F31.9 - Bipolar disorder, unspecified Blister of right heel Qualifiers: Encounter type: initial encounter Qualified Code(s): S90.821A - Blister ( nonthermal), right foot, initial encounter Condition: Good Instructions: Bipolar Disorder (ED), Blister (ED) Additional Instructions: X-ray of your right lower leg is normal. Referrals: [facility],. [Clinic] - As per Instructions
--- NOTE | 2018-07-23 18:38 | ASMTCMCOM ---
CM Note CM Note Notes: CM asked to confirm follow up for patient prior to discharge. See ED report for details. Chart reviewed, including previous ED visits this year. Patient states that he receives prescriptions for his bipolar medications from Dr. Chung at [facility]. He does not explain why he is out of his medications or whether he has followed up with recent appointments. I hav eencouraged patient to follow up at the clinic/[facility] tomorrow and reminded him of the 27/01 crisis center that is available. Patient states that he will go in to [facility] tomorrow. I have faxed a copy of patient's ED report to Janine at [facility] and left her a VM regarding patient telling CM that he "goes to the clinic" and sees Dr. Chung (psychiatrist for P at [facility]) for medication management. CM available for future needs prn Date Signed: 07/23/2018 06:37 PM Electronically Signed By:Courtney Rhodes RN
--- NOTE | 2018-07-24 15:06 | ASMTCMCOM ---
CM Note CM Note Notes: Received a call from JOSE Mehta Azure Architect at [facility]; she was returning a call from [facility] Courtney LEE, who had called her yesterday. Janine states pt has not been seen there since 2015 and pt [facility]. So if pt wants to reestablish care at [facility], he will need to re-register and go through the whole new client process again. CM available for further assistance if needed Date Signed: 07/24/2018 03:05 PM Electronically Signed By:Jing Britt RN
== END 2018-07-23 17:29 | disposition home or self-care (01) ==
DX: S90.821A Blister (nonthermal), right foot, initial encounter (principal); F31.9 Bipolar disorder, unspecified; X58.XXXA Exposure to other specified factors, initial encounter; Y92.9 Unspecified place or not applicable; Y93.9 Activity, unspecified; Y99.9 Unspecified external cause status; Z59.0 Homelessness